=== PATIENT | male | born 1950 | race Caucasian/White ===

== ENCOUNTER 2016-03-29 15:15 | Emergency (ER) | payer OTHER ==
[~2016-03-29] VITALS: Ht 172.7 cm; Wt 81.6 kg
[~2016-03-29 15:15] MED LIST: 'zyrtec10 MG PO; ABILIFY20 MG PO; ATIVAN2 MG PO; COLACE100 MG PO; DOXEPIN25 MG PO; GABAPENTIN100 M1 PO; HYDROXYZINE PAM25 M1 PO; KLONOPIN1 MG PO; MAXZIDE 50 MG-71 TA1 PO; METOPROLOL25 MG PO; MIRTAZAPINE30 MG PO; MIRTAZAPINE7.5 MG PO; OLANZAPINE10 MG PO; PANTOPRAZOLE40 MG PO; PERCOCET 325 MG1 TA5 PO; PREVACID30 MG PO; SIMVASTATIN20 MG PO; TEGRETOL PO; Tegretol-Xr 20200 MG PO; ZITHROMAX Z PA250 MG PO; ZOCOR20 MG PO
[2016-03-29 16:17] LABS: BASO # 0.1 10*3/uL (0.0-0.1); BASO % 0.9 % (0.0-1.0); EOS # 0.1 10*3/uL (0.0-0.4); EOS % 1.1 % (1.0-4.0); HEMATOCRIT 43.6 % (42.0-52.0); HEMOGLOBIN 14.9 g/dl (14.0-18.0); LYMPH # 1.8 10*3/uL (1.3-4.4); LYMPH % 20.2 % (27.0-41.0); MEAN CELL VOLUME 89.7 fl (80.0-94.0); MEAN CORPUSCULAR HGB 30.7 pg (27.0-31.0); MEAN CORPUSCULAR HGB CONC 34.2 g/dl (33.0-37.0); MEAN PLATELET VOLUME 9.6 fl (9.6-12.3); MONO # 0.6 10*3/uL (0.1-1.0); MONO % 6.4 % (3.0-9.0); NEUT # 6.2 10*3/uL (2.3-7.9); NEUT % 70.9 % (47.0-73.0); PLATELET COUNT AUTOMATED 297 10*3/uL (130-400); RED BLOOD COUNT 4.86 10*6/uL (4.50-5.90); RED CELL DISTRI WIDTH 12.7 % (0-14.5); WHITE BLOOD COUNT 8.8 10*3/uL (4.8-10.8)
[2016-03-29 16:43] LABS: ALBUMIN 3.9 gm/dl (3.1-4.5); BILIRUBIN, TOTAL 0.4 mg/dl (0.2-1.0); POTASSIUM 4.3 mmol/L (3.5-5.1); TOTAL PROTEIN 7.8 gm/dL (6.4-8.2)
[2016-03-29 16:43] LABS: BILIRUBIN NEGATIVE (NEGATIVE); BLOOD NEGATIVE (NEGATIVE); CLARITY CLEAR (CLEAR); COLOR YELLOW (YELLOW); GLUCOSE NEGATIVE (NEGATIVE); KETONE TRACE (NEGATIVE); LEUKO ESTERASE NEGATIVE (NEGATIVE); NITRITE NEGATIVE (NEGATIVE); PH 6.5 (5.0-9.0); PROTEIN NEGATIVE (NEGATIVE); UROBILINOGEN 0.2 E.U./dl (0.2-1.0)
[2016-03-29 16:52] LABS: URINE AMPHETAMINES < 1000 (1000ng/ml); URINE BARBITURATES < 200 (200ng/ml); URINE COCAINE < 300 (300ng/ml)
[2016-03-29 16:57] LABS: URINE REFLEX COMMENT NO (NO)
[2016-03-29 19:00] VITALS: BP 159/103
== END 2016-03-29 19:16 | disposition home or self-care (01) ==
LOC: ED 15:15
PROVIDERS: Physician Assistant
DX: F41.9 Anxiety disorder, unspecified (principal); R03.0 Elevated blood-pressure reading, without diagnosis of hypertension; R10.13 Epigastric pain; Z79.899 Other long term (current) drug therapy

== ENCOUNTER 2020-05-14 14:08 | Emergency (ER) | payer OTHER ==
[~2020-05-14] VITALS: Ht 172.7 cm; Wt 83.9 kg
[2020-05-14 14:12] VITALS: BP 136/84
[2020-05-14 14:47] LABS: BASO # 0.1 10*3/uL (0.0-0.1); BASO % 0.8 % (0.0-1.0); EOS # 0.1 10*3/uL (0.0-0.4); EOS % 1.5 % (1.0-4.0); HEMATOCRIT 43.6 % (42.0-52.0); LYMPH % 22.7 % (27.0-41.0); MEAN CELL VOLUME 91.6 fl (80.0-94.0); MEAN CORPUSCULAR HGB 30.9 pg (27.0-31.0); MEAN CORPUSCULAR HGB CONC 33.7 g/dl (33.0-37.0); MEAN PLATELET VOLUME 9.2 fl (9.6-12.3); MONO # 0.8 10*3/uL (0.1-1.0); MONO % 9.2 % (3.0-9.0); NEUT # 5.7 10*3/uL (2.3-7.9); NEUT % 65.3 % (47.0-73.0); PLATELET COUNT AUTOMATED 276 10*3/uL (130-400); RED BLOOD COUNT 4.76 10*6/uL (4.50-5.90); RED CELL DISTRI WIDTH 12.1 % (0-14.5); WHITE BLOOD COUNT 8.8 10*3/uL (4.8-10.8)
[2020-05-14 15:03] LABS: ALKALINE PHOSPHATASE 74 U/L (45-117); BUN 18 mg/dl (7-24); CHLORIDE 101 mmol/L (98-107); CREATININE 1.16 mg/dL (0.70-1.30); LIPASE 111 U/L (73-393); POTASSIUM 4.1 mmol/L (3.5-5.1); SGOT/AST 22 IU/L (3-35); SGPT/ALT 29 U/L (12-78); SODIUM 135 mmol/L (136-145); TOTAL PROTEIN 7.6 gm/dL (6.4-8.2)
[2020-05-14 17:46] LABS: BILIRUBIN Negative (Negative); BLOOD Negative (Negative); CLARITY Clear (Clear); COLOR Yellow (Yellow); GLUCOSE Negative (Negative); KETONE Negative (Negative); LEUKO ESTERASE Negative (Negative); NITRITE Negative (Negative); PH 6.5 (4.5-8.0); SPECIFIC GRAVITY <= 1.005 (1.001-1.030); UROBILINOGEN 0.2 E.U./dl (0.0-1.0)
[2020-05-14 18:00] LABS: BACTERIA TRACE; EPITHELIAL CELLS 0-2
== END 2020-05-14 18:44 | disposition home or self-care (01) ==
LOC: ED 14:08
PROVIDERS: Nurse Practitioner Family
DX: R10.9 Unspecified abdominal pain (principal); I10 Essential (primary) hypertension; F41.9 Anxiety disorder, unspecified; F32.9 Major depressive disorder, single episode, unspecified; Z79.899 Other long term (current) drug therapy; Z87.891 Personal history of nicotine dependence

== ENCOUNTER → 2020-05-20 | Outpatient (CLI) | payer OTHER | END | disposition home or self-care (01) | LOC: RESCLI 13:57 | PROVIDERS: ATTEND Internal Medicine | DX: G20 Parkinson's disease (principal); K59.2 Neurogenic bowel, not elsewhere classified; K59.00 Constipation, unspecified; R22.1 Localized swelling, mass and lump, neck; I34.1 Nonrheumatic mitral (valve) prolapse; Z79.899 Other long term (current) drug therapy ==

== ENCOUNTER → 2020-05-28 | Outpatient (CLI) | payer OTHER ==
[2020-05-28 15:34] LABS: VITAMIN D, 25-HYDROXY 23.9 ng/mL (30-100)
== END | disposition home or self-care (01) ==
LOC: LAB 14:47
PROVIDERS: Hospitalist; ATTEND Internal Medicine
DX: I10 Essential (primary) hypertension (principal); E78.5 Hyperlipidemia, unspecified; R22.1 Localized swelling, mass and lump, neck; Z79.899 Other long term (current) drug therapy; G20 Parkinson's disease

== ENCOUNTER → 2020-06-07 | Outpatient (CLI) | payer OTHER | END | disposition home or self-care (01) | LOC: US 14:00 | PROVIDERS: ATTEND Internal Medicine Nephrology | DX: E04.1 Nontoxic single thyroid nodule (principal) ==

== ENCOUNTER → 2020-06-22 | Outpatient (CLI) | payer OTHER | END | disposition home or self-care (01) | LOC: RESCLI 02:17 | PROVIDERS: ATTEND Internal Medicine | DX: K59.2 Neurogenic bowel, not elsewhere classified (principal); K59.00 Constipation, unspecified; G20 Parkinson's disease; R22.1 Localized swelling, mass and lump, neck; I34.1 Nonrheumatic mitral (valve) prolapse; E66.01 Morbid (severe) obesity due to excess calories; F32.9 Major depressive disorder, single episode, unspecified; F41.9 Anxiety disorder, unspecified; I10 Essential (primary) hypertension; E78.5 Hyperlipidemia, unspecified; K21.9 Gastro-esophageal reflux disease without esophagitis; E55.9 Vitamin D deficiency, unspecified; L98.9 Disorder of the skin and subcutaneous tissue, unspecified; R73.03 Prediabetes; Z68.41 Body mass index [BMI] 40.0-44.9, adult; Z79.899 Other long term (current) drug therapy; Z98.890 Other specified postprocedural states; Z87.891 Personal history of nicotine dependence ==

== ENCOUNTER → 2020-08-31 | Outpatient (CLI) | payer OTHER | END | disposition home or self-care (01) | LOC: RESCLI 00:58 | PROVIDERS: ATTEND Hospitalist | DX: K59.2 Neurogenic bowel, not elsewhere classified (principal); G20 Parkinson's disease; I34.1 Nonrheumatic mitral (valve) prolapse; E66.01 Morbid (severe) obesity due to excess calories; F32.9 Major depressive disorder, single episode, unspecified; F41.9 Anxiety disorder, unspecified; I10 Essential (primary) hypertension; E78.5 Hyperlipidemia, unspecified; K59.00 Constipation, unspecified; K21.9 Gastro-esophageal reflux disease without esophagitis; E55.9 Vitamin D deficiency, unspecified; L98.9 Disorder of the skin and subcutaneous tissue, unspecified; R73.03 Prediabetes; J30.2 Other seasonal allergic rhinitis; Z68.41 Body mass index [BMI] 40.0-44.9, adult; Z79.899 Other long term (current) drug therapy; Z98.890 Other specified postprocedural states; Z87.891 Personal history of nicotine dependence ==

== ENCOUNTER → 2020-11-04 | Outpatient (CLI) | payer OTHER | END | disposition home or self-care (01) | LOC: RESCLI 06:43 | PROVIDERS: ATTEND Internal Medicine | DX: J32.9 Chronic sinusitis, unspecified (principal); J18.9 Pneumonia, unspecified organism; I34.1 Nonrheumatic mitral (valve) prolapse; G20 Parkinson's disease; F32.9 Major depressive disorder, single episode, unspecified; I10 Essential (primary) hypertension; E78.5 Hyperlipidemia, unspecified; K21.9 Gastro-esophageal reflux disease without esophagitis; E55.9 Vitamin D deficiency, unspecified; F41.9 Anxiety disorder, unspecified; J30.2 Other seasonal allergic rhinitis; Z79.899 Other long term (current) drug therapy ==

== ENCOUNTER 2020-12-27 10:35 | Emergency (ER) | payer OTHER ==
[~2020-12-27] VITALS: Ht 172.7 cm; Wt 102.1 kg
[2020-12-27 10:49] VITALS: BP 143/93
[2020-12-27] MEDS ORDERED: MIRALAX POWDER17 G1 PO (14:03)
[2020-12-27] MEDS ORDERED: VIBRAMYCIN100 MG PO (14:03)
== END 2020-12-27 14:18 | disposition home or self-care (01) ==
LOC: ED 10:35
DX: J32.9 Chronic sinusitis, unspecified (principal); Z20.822 Contact with and (suspected) exposure to COVID-19; K59.00 Constipation, unspecified; Z87.891 Personal history of nicotine dependence

== ENCOUNTER → 2021-03-23 | Outpatient (CLI) | payer OTHER ==
[~2021-03-23] MED LIST changes: +MIRALAX POWDER17 G1 PO; +VIBRAMYCIN100 MG PO
[2021-03-23 15:15] LABS: BASO # 0.1 10*3/uL (0.0-0.1); BASO % 0.9 % (0.0-1.0); EOS # 0.1 10*3/uL (0.0-0.4); EOS % 1.6 % (1.0-4.0); HEMATOCRIT 45.5 % (42.0-52.0); LYMPH # 2.4 10*3/uL (1.3-4.4); MEAN CORPUSCULAR HGB CONC 34.1 g/dl (33.0-37.0); MEAN PLATELET VOLUME 10.2 fl (9.6-12.3); MONO # 0.8 10*3/uL (0.1-1.0); MONO % 8.7 % (3.0-9.0); NEUT # 5.4 10*3/uL (2.3-7.9); NEUT % 61.5 % (47.0-73.0); PLATELET COUNT AUTOMATED 266 10*3/uL (130-400); RED BLOOD COUNT 4.84 10*6/uL (4.50-5.90); RED CELL DISTRI WIDTH 12.8 % (0-14.5); WHITE BLOOD COUNT 8.8 10*3/uL (4.8-10.8)
== END | disposition home or self-care (01) ==
LOC: RESCLI 01:12
PROVIDERS: Hospitalist; ATTEND Internal Medicine Nephrology
DX: J44.9 Chronic obstructive pulmonary disease, unspecified (principal); J01.81 Other acute recurrent sinusitis; J40 Bronchitis, not specified as acute or chronic; Z87.891 Personal history of nicotine dependence; Z79.899 Other long term (current) drug therapy

== ENCOUNTER → 2021-04-15 | Outpatient (CLI) | payer OTHER ==
[2021-04-15 13:24] LABS: CREATININE 1.08 mg/dL (0.70-1.30)
== END | disposition home or self-care (01) ==
LOC: CT 04-08 13:00 → LAB 12:55 → CT 13:00
PROVIDERS: Radiology Diagnostic Radiology; ATTEND Internal Medicine
DX: J34.89 Other specified disorders of nose and nasal sinuses (principal); J01.81 Other acute recurrent sinusitis

== ENCOUNTER → 2021-04-20 | Outpatient (CLI) | payer OTHER | END | disposition home or self-care (01) | LOC: RESCLI 01:55 | PROVIDERS: ATTEND Internal Medicine Nephrology | DX: K59.09 Other constipation (principal); J32.9 Chronic sinusitis, unspecified; I10 Essential (primary) hypertension; K21.9 Gastro-esophageal reflux disease without esophagitis; E55.9 Vitamin D deficiency, unspecified; G20 Parkinson's disease; Z98.890 Other specified postprocedural states; Z79.899 Other long term (current) drug therapy; Z87.891 Personal history of nicotine dependence ==

== ENCOUNTER 2021-06-14 20:59 | Inpatient (IN) | payer OTHER ==
[~2021-06-14] VITALS: Ht 172.7 cm; Wt 81.0 kg
[2021-06-14 20:59] VITALS: BP 150/68
[2021-06-14] MEDS ORDERED: LORAZEPAM2 MG PO (21:13)
[2021-06-14] MEDS ORDERED: CARBIDOPA-LEVO1 EAC7 PO (21:14)
[2021-06-14] MEDS ORDERED: ALTACE10 MG PO (21:14)
[2021-06-14] MEDS ORDERED: DOXEPIN25 MG PO (21:15)
[2021-06-14] MEDS ORDERED: CLARITIN10 MG PO (21:15)
[2021-06-14] MEDS ORDERED: VITAMIN D325 MCG PO (21:16)
[2021-06-14] MEDS ORDERED: OMEPRAZOLE10 MG PO (21:16)
[2021-06-14 21:54] LABS: BASO # 0.1 10*3/uL (0.0-0.1); BASO % 1.2 % (0.0-1.0); EOS # 0.2 10*3/uL (0.0-0.4); HEMATOCRIT 46.2 % (42.0-52.0); LYMPH # 2.7 10*3/uL (1.3-4.4); LYMPH % 35.1 % (27.0-41.0); MEAN CELL VOLUME 95.3 fl (80.0-94.0); MEAN CORPUSCULAR HGB 31.8 pg (27.0-31.0); MEAN CORPUSCULAR HGB CONC 33.3 g/dl (33.0-37.0); MEAN PLATELET VOLUME 9.7 fl (9.6-12.3); MONO # 0.8 10*3/uL (0.1-1.0); MONO % 10.9 % (3.0-9.0); NEUT # 3.8 10*3/uL (2.3-7.9); NEUT % 50.5 % (47.0-73.0); PLATELET COUNT AUTOMATED 273 10*3/uL (130-400); RED BLOOD COUNT 4.85 10*6/uL (4.50-5.90); RED CELL DISTRI WIDTH 11.9 % (0-14.5); WHITE BLOOD COUNT 7.6 10*3/uL (4.8-10.8)
[2021-06-14 22:06] LABS: ACT PARTIAL THROMBO TIME 26.6 SECONDS (20.0-32.1)
[2021-06-14 22:24] LABS: ALKALINE PHOSPHATASE 66 U/L (45-117); BUN 16 mg/dl (7-24); CHLORIDE 106 mmol/L (98-107); CREATININE 1.08 mg/dL (0.70-1.30); LIPASE 185 U/L (73-393); POTASSIUM 4.3 mmol/L (3.5-5.1); SGOT/AST 11 IU/L (3-35); SGPT/ALT 21 U/L (12-78); SODIUM 139 mmol/L (136-145); TOTAL PROTEIN 7.6 gm/dL (6.4-8.2)
[2021-06-14 22:53] VITALS: BP 142/84
[2021-06-14 23:29] LABS: BILIRUBIN Negative (Negative); BLOOD Negative (Negative); CLARITY Clear (Clear); COLOR Yellow (Yellow); GLUCOSE Negative (Negative); KETONE Negative (Negative); LEUKO ESTERASE Negative (Negative); NITRITE Negative (Negative); SPECIFIC GRAVITY 1.015 (1.001-1.030); UROBILINOGEN 0.2 E.U./dl (0.0-1.0)
[2021-06-14 23:38] LABS: URINE AMPHETAMINES < 1000 (1000ng/ml); URINE BARBITURATES < 200 (200ng/ml); URINE BENZODIAZEPINES < 200 (200ng/ml); URINE CANNABINOIDS (THC) < 50 (50ng/ml); URINE COCAINE < 300 (300ng/ml); URINE METHADONE < 300 (300ng/ml); URINE OPIATES < 300 (300ng/ml)
[2021-06-14 23:40] LABS: URINE PHENCYCLIDINE < 25 (25ng/ml)
[2021-06-14 23:41] LABS: WBC 0-2 wbc/hpf (0-5)
[2021-06-15] VITALS (7 sets, daily range): BP systolic 115–154; BP diastolic 54–94
[2021-06-15 06:31] LABS: FREE T4 1.21 ng/dl (0.76-1.46)
[2021-06-15 06:36] LABS: THYROID STIM HORMONE (HS) 2.08 uIU/ml (0.358-4.75)
[2021-06-15 13:36] LABS: BUN 14 mg/dl (7-24); CHLORIDE 109 mmol/L (98-107); POTASSIUM 4.3 mmol/L (3.5-5.1); SODIUM 137 mmol/L (136-145)
[2021-06-16] VITALS: BP 128/76
[2021-06-16 06:08] LABS: BASO # 0.1 10*3/uL (0.0-0.1); BASO % 0.9 % (0.0-1.0); EOS # 0.1 10*3/uL (0.0-0.4); EOS % 1.4 % (1.0-4.0); HEMATOCRIT 41.6 % (42.0-52.0); LYMPH # 2.6 10*3/uL (1.3-4.4); LYMPH % 30.8 % (27.0-41.0); MEAN CELL VOLUME 96.3 fl (80.0-94.0); MEAN CORPUSCULAR HGB 32.9 pg (27.0-31.0); MEAN CORPUSCULAR HGB CONC 34.1 g/dl (33.0-37.0); MONO # 0.8 10*3/uL (0.1-1.0); MONO % 8.9 % (3.0-9.0); NEUT # 4.9 10*3/uL (2.3-7.9); NEUT % 57.8 % (47.0-73.0); PLATELET COUNT AUTOMATED 245 10*3/uL (130-400); RED BLOOD COUNT 4.32 10*6/uL (4.50-5.90); RED CELL DISTRI WIDTH 12.3 % (0-14.5); WHITE BLOOD COUNT 8.5 10*3/uL (4.8-10.8)
[2021-06-16 06:41] LABS: ALKALINE PHOSPHATASE 58 U/L (45-117); BUN 13 mg/dl (7-24); CHLORIDE 112 mmol/L (98-107); CHOLESTEROL 126 mg/dL (<200); LDL CHOLESTEROL 54 mg/dL (9-159); POTASSIUM 4.5 mmol/L (3.5-5.1); SGOT/AST 8 IU/L (3-35); SGPT/ALT 17 U/L (12-78); SODIUM 140 mmol/L (136-145); TOTAL PROTEIN 6.6 gm/dL (6.4-8.2); TRIGLYCERIDES 79 mg/dl (<150)
[2021-06-16 08:00] VITALS: BP 125/74
[2021-06-16] MEDS ORDERED: Vitamin D (1,000 UNI PO (11:26)
[2021-06-16] MEDS ORDERED: LORAZEPAM1 MG PO (11:26)
[2021-06-16 12:00] VITALS: BP 149/88
== END 2021-06-16 14:25 | DRG 52 ==
LOC: ED 20:59 → EDHOLD 06-15 01:05 → 5E 06-15 01:05 → ICCU 06-16 05:49 → 5E 06-16 06:05
PROVIDERS: Internal Medicine; Internal Medicine Cardiovascular Disease; Physician Assistant; Student in an Organized Health Care Education/Training Program; ADMIT Internal Medicine; ATTEND Internal Medicine
DX: G93.41 Metabolic encephalopathy (principal); R00.1 Bradycardia, unspecified; D75.89 Other specified diseases of blood and blood-forming organs; F41.9 Anxiety disorder, unspecified; E83.41 Hypermagnesemia; K21.9 Gastro-esophageal reflux disease without esophagitis; I10 Essential (primary) hypertension; I34.1 Nonrheumatic mitral (valve) prolapse; G20 Parkinson's disease; F32.A Depression, unspecified; Z81.8 Family history of other mental and behavioral disorders; Z68.33 Body mass index [BMI] 33.0-33.9, adult; Z82.49 Family history of ischemic heart disease and other diseases of the circulatory system; Z48.815 Encounter for surgical aftercare following surgery on the digestive system; Z87.891 Personal history of nicotine dependence; Z80.9 Family history of malignant neoplasm, unspecified

== ENCOUNTER → 2021-07-06 | Outpatient (CLI) | payer OTHER ==
[~2021-07-06] MED LIST changes: +ALTACE10 MG PO; +CARBIDOPA-LEVO1 EAC7 PO; +CLARITIN10 MG PO; +HYDROXYZINE HCL25 MG PO; +LORAZEPAM0.5 MG PO; +LORAZEPAM1 MG PO; +LORAZEPAM2 MG PO; +OMEPRAZOLE10 MG PO; +VITAMIN D325 MCG PO; +Vitamin D (1,000 UNI PO
== END | disposition home or self-care (01) ==
LOC: RESCLI 01:54
PROVIDERS: ATTEND Internal Medicine Nephrology
DX: R00.0 Tachycardia, unspecified (principal); R00.1 Bradycardia, unspecified; J32.9 Chronic sinusitis, unspecified; E55.9 Vitamin D deficiency, unspecified; I10 Essential (primary) hypertension; K21.9 Gastro-esophageal reflux disease without esophagitis; G20 Parkinson's disease; K59.00 Constipation, unspecified; F41.9 Anxiety disorder, unspecified; F32.9 Major depressive disorder, single episode, unspecified; E78.5 Hyperlipidemia, unspecified; J30.2 Other seasonal allergic rhinitis; Z87.891 Personal history of nicotine dependence; Z98.890 Other specified postprocedural states; Z79.899 Other long term (current) drug therapy

== ENCOUNTER → 2021-07-20 | Outpatient (CLI) | payer OTHER | END | disposition home or self-care (01) | LOC: LAB 14:36 | PROVIDERS: ATTEND Specialist | DX: J30.9 Allergic rhinitis, unspecified (principal) ==

== ENCOUNTER → 2021-10-26 | Outpatient (CLI) | payer OTHER | END | disposition home or self-care (01) | LOC: CT 13:00 | PROVIDERS: ATTEND Specialist | DX: J32.3 Chronic sphenoidal sinusitis (principal) ==

== ENCOUNTER 2021-11-06 09:17 | Emergency (ER) | payer OTHER ==
[2021-11-06 10:17] LABS: BASO # 0.1 10*3/uL (0.0-0.1); EOS # 0.1 10*3/uL (0.0-0.4); EOS % 0.8 % (1.0-4.0); HEMATOCRIT 44.5 % (42.0-52.0); LYMPH # 1.5 10*3/uL (1.3-4.4); LYMPH % 20.8 % (27.0-41.0); MEAN CELL VOLUME 94.1 fl (80.0-94.0); MEAN CORPUSCULAR HGB 32.6 pg (27.0-31.0); MEAN CORPUSCULAR HGB CONC 34.6 g/dl (33.0-37.0); MEAN PLATELET VOLUME 9.2 fl (9.6-12.3); MONO # 0.7 10*3/uL (0.1-1.0); MONO % 9.5 % (3.0-9.0); NEUT % 67.5 % (47.0-73.0); PLATELET COUNT AUTOMATED 300 10*3/uL (130-400); RED BLOOD COUNT 4.73 10*6/uL (4.50-5.90); RED CELL DISTRI WIDTH 11.9 % (0-14.5); WHITE BLOOD COUNT 7.4 10*3/uL (4.8-10.8)
[2021-11-06 10:28] LABS: ACT PARTIAL THROMBO TIME 25.4 SECONDS (20.0-32.1)
[2021-11-06 10:33] LABS: ALKALINE PHOSPHATASE 68 U/L (45-117); BUN 13 mg/dl (7-24); CHLORIDE 103 mmol/L (98-107); CREATININE 0.93 mg/dL (0.70-1.30); POTASSIUM 4.3 mmol/L (3.5-5.1); SGOT/AST 10 IU/L (3-35); SGPT/ALT 19 U/L (12-78); SODIUM 134 mmol/L (136-145); TOTAL PROTEIN 7.3 gm/dL (6.4-8.2)
[2021-11-06 12:45] VITALS: BP 124/62
[2021-11-06] MEDS ORDERED: RAMIPRIL10 MG PO (12:57)
== END 2021-11-06 13:14 | disposition home or self-care (01) ==
LOC: ED 09:17
PROVIDERS: Family Medicine
DX: I10 Essential (primary) hypertension (principal); Z87.891 Personal history of nicotine dependence; Z98.890 Other specified postprocedural states; Z79.899 Other long term (current) drug therapy

== ENCOUNTER → 2021-11-15 | Outpatient (CLI) | payer OTHER ==
[~2021-11-15] MED LIST changes: +RAMIPRIL10 MG PO
== END | disposition home or self-care (01) ==
LOC: RESCLI 14:22
PROVIDERS: ATTEND Internal Medicine
DX: R00.1 Bradycardia, unspecified (principal); I49.8 Other specified cardiac arrhythmias; I10 Essential (primary) hypertension; F41.8 Other specified anxiety disorders; F32.A Depression, unspecified; F41.9 Anxiety disorder, unspecified; K21.9 Gastro-esophageal reflux disease without esophagitis; Z79.899 Other long term (current) drug therapy; Z87.891 Personal history of nicotine dependence

== ENCOUNTER 2022-01-14 17:57 | Emergency (ER) | payer OTHER ==
[~2022-01-14] VITALS: Ht 172.7 cm; Wt 84.8 kg
[~2022-01-14 17:57] MED LIST changes: +AMLODIPINE BESYL5 MG PO
[2022-01-14 18:24] VITALS: BP 140/90
[2022-01-14 18:51] LABS: BASO # 0.1 10*3/uL (0.0-0.1); EOS # 0.1 10*3/uL (0.0-0.4); EOS % 0.9 % (1.0-4.0); HEMATOCRIT 41.6 % (42.0-52.0); LYMPH % 24.2 % (27.0-41.0); MEAN CORPUSCULAR HGB 33.3 pg (27.0-31.0); MEAN CORPUSCULAR HGB CONC 35.1 g/dl (33.0-37.0); MEAN PLATELET VOLUME 9.3 fl (9.6-12.3); MONO # 0.8 10*3/uL (0.1-1.0); MONO % 9.6 % (3.0-9.0); NEUT # 5.3 10*3/uL (2.3-7.9); NEUT % 64.1 % (47.0-73.0); PLATELET COUNT AUTOMATED 310 10*3/uL (130-400); RED BLOOD COUNT 4.38 10*6/uL (4.50-5.90); RED CELL DISTRI WIDTH 11.7 % (0-14.5); WHITE BLOOD COUNT 8.2 10*3/uL (4.8-10.8)
[2022-01-14 19:07] LABS: ALKALINE PHOSPHATASE 73 U/L (45-117); BUN 16 mg/dl (7-24); CHLORIDE 105 mmol/L (98-107); CREATININE 0.95 mg/dL (0.70-1.30); POTASSIUM 3.9 mmol/L (3.5-5.1); SGOT/AST 12 IU/L (3-35); SGPT/ALT 21 U/L (12-78); SODIUM 137 mmol/L (136-145); TOTAL PROTEIN 7.3 gm/dL (6.4-8.2)
== END 2022-01-14 19:58 | disposition home or self-care (01) ==
LOC: ED 17:57
PROVIDERS: Physician Assistant
DX: F13.239 Sedative, hypnotic or anxiolytic dependence with withdrawal, unspecified (principal); Z79.899 Other long term (current) drug therapy; Z98.890 Other specified postprocedural states; Z87.891 Personal history of nicotine dependence

== ENCOUNTER 2022-01-16 03:49 | Emergency (ER) | payer OTHER ==
[~2022-01-16] VITALS: Ht 170.1 cm; Wt 73.5 kg
[2022-01-16 03:55] VITALS: BP 149/86
[2022-01-16] MEDS ORDERED: ATIVAN1 MG PO ×2 (04:13→04:15)
== END 2022-01-16 04:56 | disposition home or self-care (01) ==
LOC: ED 03:49
DX: F41.9 Anxiety disorder, unspecified (principal); F13.930 Sedative, hypnotic or anxiolytic use, unspecified with withdrawal, uncomplicated

== ENCOUNTER 2022-09-27 09:31 | Emergency (ER) | payer MEDICARE, MEDICAID ==
[~2022-09-27] VITALS: Wt 77.1 kg
[~2022-09-27 09:31] MED LIST changes: +ATIVAN1 MG PO
[2022-09-27 09:39] VITALS: BP 144/86
[2022-09-27 10:28] LABS: BASO # 0.1 10*3/uL (0.0-0.1); EOS # 0.1 10*3/uL (0.0-0.4); EOS % 1.8 % (1.0-4.0); HEMATOCRIT 45.8 % (42.0-52.0); LYMPH # 1.6 10*3/uL (1.3-4.4); LYMPH % 25.8 % (27.0-41.0); MEAN CELL VOLUME 95.8 fl (80.0-94.0); MEAN CORPUSCULAR HGB CONC 33.4 g/dl (33.0-37.0); MEAN PLATELET VOLUME 9.4 fl (9.6-12.3); MONO # 0.6 10*3/uL (0.1-1.0); MONO % 9.2 % (3.0-9.0); NEUT # 3.9 10*3/uL (2.3-7.9); NEUT % 61.9 % (47.0-73.0); PLATELET COUNT AUTOMATED 292 10*3/uL (130-400); RED BLOOD COUNT 4.78 10*6/uL (4.50-5.90); RED CELL DISTRI WIDTH 11.8 % (0-14.5); WHITE BLOOD COUNT 6.3 10*3/uL (4.8-10.8)
[2022-09-27 10:51] LABS: ALKALINE PHOSPHATASE 81 U/L (46-116); BUN 14 mg/dl (9-23); CHLORIDE 103 mmol/L (98-107); POTASSIUM 3.8 mmol/L (3.4-5.1); SGPT/ALT 16 U/L (10-49); TOTAL PROTEIN 7.4 gm/dL (6.0-8.0)
== END 2022-09-27 11:59 | disposition home or self-care (01) ==
LOC: ED 09:31
PROVIDERS: Emergency Medicine
DX: F19.239 Other psychoactive substance dependence with withdrawal, unspecified (principal); I10 Essential (primary) hypertension; F41.9 Anxiety disorder, unspecified; F32.A Depression, unspecified; Z98.890 Other specified postprocedural states; Z87.891 Personal history of nicotine dependence

== ENCOUNTER → 2023-01-09 | Outpatient (CLI) | payer OTHER ==
[2023-01-09 15:42] LABS: BASO # 0.1 10*3/uL (0.0-0.1); EOS # 0.1 10*3/uL (0.0-0.4); EOS % 1.5 % (1.0-4.0); HEMATOCRIT 45.1 % (42.0-52.0); LYMPH # 2.9 10*3/uL (1.3-4.4); MEAN CELL VOLUME 96.4 fl (80.0-94.0); MEAN CORPUSCULAR HGB 32.3 pg (27.0-31.0); MEAN CORPUSCULAR HGB CONC 33.5 g/dl (33.0-37.0); MEAN PLATELET VOLUME 9.4 fl (9.6-12.3); MONO % 10.4 % (3.0-9.0); NEUT # 5.4 10*3/uL (2.3-7.9); NEUT % 56.6 % (47.0-73.0); PLATELET COUNT AUTOMATED 282 10*3/uL (130-400); RED BLOOD COUNT 4.68 10*6/uL (4.50-5.90); RED CELL DISTRI WIDTH 12.1 % (0-14.5); WHITE BLOOD COUNT 9.6 10*3/uL (4.8-10.8)
[2023-01-09 15:56] LABS: URINE CREATININE RANDOM 57.32 mg/dL
[2023-01-09 16:18] LABS: VITAMIN D, 25-HYDROXY 46.5 ng/mL (30-100)
[2023-01-09 16:19] LABS: ALKALINE PHOSPHATASE 75 U/L (46-116); BUN 17 mg/dl (9-23); CHLORIDE 102 mmol/L (98-107); CHOLESTEROL 141 mg/dL (<200); FREE T4 1.54 ng/dl (0.89-1.76); LDL CHOLESTEROL 51 mg/dL (9-159); POTASSIUM 4.4 mmol/L (3.4-5.1); SGPT/ALT 17 U/L (10-49); TOTAL PROTEIN 7.8 gm/dL (6.0-8.0); TRIGLYCERIDES 133 mg/dl (<150)
== END | disposition home or self-care (01) ==
LOC: LAB 15:04
PROVIDERS: ATTEND Internal Medicine
DX: I10 Essential (primary) hypertension (principal)

== ENCOUNTER 2023-06-14 15:42 | Emergency (ER) | payer OTHER ==
[~2023-06-14] VITALS: Ht 172.7 cm; Wt 85.3 kg
[2023-06-14 15:48] VITALS: BP 137/56
== END 2023-06-14 17:10 | disposition home or self-care (01) ==
LOC: ED 15:42
DX: F41.9 Anxiety disorder, unspecified (principal); Z76.0 Encounter for issue of repeat prescription; Z79.899 Other long term (current) drug therapy; Z87.891 Personal history of nicotine dependence

== ENCOUNTER 2023-06-15 12:18 | Emergency (ER) | payer OTHER ==
[~2023-06-15] VITALS: Wt 85.3 kg
[2023-06-15 12:25] VITALS: BP 147/72
[2023-06-15] MEDS ORDERED: LORazepam 2 MG TAB PO ONE (12:25)
== END 2023-06-15 12:35 | disposition home or self-care (01) ==
LOC: ED 12:18
DX: F41.9 Anxiety disorder, unspecified (principal); I10 Essential (primary) hypertension; F32.A Depression, unspecified; Z98.890 Other specified postprocedural states; Z87.891 Personal history of nicotine dependence

== ENCOUNTER 2023-06-16 17:37 | Emergency (ER) | payer OTHER ==
[2023-06-16] MEDS ORDERED: LORazepam 2 MG TAB PO ONE ×2 (17:40)
[2023-06-16 17:42] VITALS: BP 145/85
== END 2023-06-16 19:16 | disposition home or self-care (01) ==
LOC: ED 17:37
DX: F41.9 Anxiety disorder, unspecified (principal); I10 Essential (primary) hypertension; Z79.899 Other long term (current) drug therapy; Z90.89 Acquired absence of other organs; Z87.891 Personal history of nicotine dependence

== ENCOUNTER → 2024-01-14 | Outpatient (CLI) | payer OTHER ==
[2024-01-14 13:58] LABS: BASO # 0.1 10*3/uL (0.0-0.1); BASO % 1.1 % (0.0-1.0); EOS # 0.3 10*3/uL (0.0-0.4); EOS % 2.4 % (1.0-4.0); HEMATOCRIT 41.8 % (42.0-52.0); LYMPH # 3.3 10*3/uL (1.3-4.4); LYMPH % 29.3 % (27.0-41.0); MEAN CELL VOLUME 95.9 fl (80.0-94.0); MEAN CORPUSCULAR HGB 31.7 pg (27.0-31.0); MEAN PLATELET VOLUME 8.5 fl (9.6-12.3); MONO # 0.9 10*3/uL (0.1-1.0); MONO % 8.1 % (3.0-9.0); NEUT # 6.6 10*3/uL (2.3-7.9); NEUT % 58.2 % (47.0-73.0); PLATELET COUNT AUTOMATED 485 10*3/uL (130-400); RED BLOOD COUNT 4.36 10*6/uL (4.50-5.90); RED CELL DISTRI WIDTH 11.8 % (0-14.5); WHITE BLOOD COUNT 11.4 10*3/uL (4.8-10.8)
[2024-01-14 14:41] LABS: ALKALINE PHOSPHATASE 94 U/L (46-116); BUN 15 mg/dl (9-23); CHLORIDE 100 mmol/L (98-107); SGPT/ALT 19 U/L (5-49); TOTAL PROTEIN 8.1 gm/dL (6.0-8.0)
== END | disposition home or self-care (01) ==
LOC: US 05:58 → LAB 05:58 → US 14:00
PROVIDERS: ATTEND Urology
DX: Z12.5 Encounter for screening for malignant neoplasm of prostate (principal); N28.89 Other specified disorders of kidney and ureter; D40.0 Neoplasm of uncertain behavior of prostate; R53.83 Other fatigue; N28.1 Cyst of kidney, acquired; R35.1 Nocturia